=== PATIENT | female | born 1945 | race Caucasian/White ===

== ENCOUNTER 2017-09-08 08:58 | Emergency (ER) | payer MEDICARE, BC ==
[~2017-09-08] VITALS: Ht 162.6 cm; Wt 71.0 kg
[2017-09-08 09:09] VITALS: BP 169/83; PULSE 54; RESP 18; TEMP 98.9; O2SAT 96
--- NOTE | 2017-09-08 09:18 | PD ---
HPI Chief Complaint: Hypertension Time Seen by Provider: 09:17 Travel History International Travel<30 days: No Contact w/Intl Traveler<30days: No Traveled to known affect area: No History of Present Illness HPI 72-year-old female came to the emergency room with her daughter with history of dizziness, blurred vision on and off for past couple weeks. Patient has been checking her blood pressure and it fluctuates anywhere from 140 systolic to 180s. She went to see a primary care physician and was asked to keep a diary of the blood pressure. However this morning she was feeling quite dizzy and not feeling well and asked her daughter to bring her to the emergency room. Blood pressure in triage is reasonable. Patient has history of breast cancer and has been on remission but given her symptoms she feels that her cancer might be coming back. Patient denies of any headache or pain anywhere. Patient denies of any syncopal episode. She has been nauseous as well including this morning. No history of vomiting however. Patient is on diltiazem and Ziac for her blood pressure. She is also on Lasix as needed which she has not taken any years. Patient's heart rate is in the 50s. [facility] Past Medical History Narrative Medical List of her past medical, surgical, social and family history reviewed from the nursing note. Cardiovascular Problems: Yes (HTN) ?: Not Allergies-Medications (Allergen,Severity, Reaction): Coded Allergies: adhesive tape (Verified Adverse Reaction, Intermediate, SKIN IRRITATION, ) morphine (Verified Adverse Reaction, Intermediate, NAUSEA, 09/08/17) Comments List of her allergies reviewed from the nursing note. Reported Meds & Prescriptions Reported Meds & Active Scripts Active Meclizine (Meclizine HCl) 25 Mg Tab 25 Mg PO TID PRN Reported Tramadol (Tramadol HCl) 50 Mg Tab 50 Mg PO BID PRN Klonopin (Clonazepam) 0.5 Mg Tab 0.5 Mg PO TID PRN Ziac (Bisoprolol Fumarate/HCTZ) 10-6.25 Mg Tab 1 Tab PO DAILY Gabapentin 300 Mg Cap 300 Mg PO TID Simvastatin 20 Mg Tab 20 Mg PO DAILY Trazodone (Trazodone HCl) 50 Mg Tab 50 Mg PO HS Diltiazem ER 24 HR 180 Mg Fiona 120 Mg PO DAILY Narrative Medication List of her home medications reviewed from the nursing note. Review of Systems Except as stated in HPI: all other systems reviewed are Neg Eyes: Positive: Blurred Vision Gastrointestinal: Positive: Nausea Neurologic: Positive: Dizziness Physical Exam Narrative GENERAL: Awake, alert, anxious, no obvious distress SKIN: Focused skin assessment warm/dry. HEAD: Atraumatic. Normocephalic. EYES: Pupils equal and round. No scleral icterus. No injection or drainage. ENT: No nasal bleeding or discharge. Mucous membranes pink and moist. NECK: Trachea midline. No JVD. CARDIOVASCULAR: Regular rate and rhythm. No murmur appreciated. RESPIRATORY: No accessory muscle use. Clear to auscultation. Breath sounds equal bilaterally. GASTROINTESTINAL: Abdomen soft, non-tender, nondistended. Hepatic and splenic margins not palpable. MUSCULOSKELETAL: No obvious deformities. No clubbing. No cyanosis. No edema. NEUROLOGICAL: Awake and alert. No obvious cranial nerve deficits. Motor grossly within normal limits. Normal speech. PSYCHIATRIC: Appropriate mood and affect; insight and judgment normal. Data Data Last Documented VS Vital Signs Date Time Temp Pulse Resp B/P (MAP) Pulse Ox O2 Delivery O2 Flow Rate FiO2 09/08/17 12:40 09/08/17 11:50 52 16 97 Room Air 09/08/17 09:09 98.9 Orders Orders Electrocardiogram (09/08/17 09:37) Complete Blood Count With Diff (09/08/17 09:37) Basic Metabolic Panel (Bmp) (09/08/17 09:37) Urinalysis - C+S If Indicated (09/08/17 09:37) Ecg Monitoring (09/08/17 09:37) Iv Access Insert/Monitor (09/08/17 09:37) Oximetry (09/08/17 09:37) Sodium Chloride 0.9% Flush (Ns Flush) (09/08/17 09:45) Ct Brain W & W/O Iv Contrast (09/08/17 ) Urine Culture (09/08/17 10:35) Iohexol 350 Inj (Omnipaque 350 Inj) (09/08/17 11:27) Ed Discharge Order (09/08/17 12:11) Meclizine (Antivert) (09/08/17 12:15) Labs Laboratory Tests Test 09/08/17 10:00 09/08/17 10:25 09/08/17 10:35 White Blood Count 5.1 TH/MM3 Red Blood Count 4.37 MIL/MM3 Hemoglobin 13.4 GM/DL Hematocrit 39.0 % Mean Corpuscular Volume 89.2 FL Mean Corpuscular Hemoglobin 30.7 PG Mean Corpuscular Hemoglobin Concent 34.4 % Red Cell Distribution Width 12.3 % Platelet Count 244 TH/MM3 Mean Platelet Volume 8.5 FL Neutrophils (%) (Auto) 70.9 % Lymphocytes (%) (Auto) 15.7 % Monocytes (%) (Auto) 8.3 % Eosinophils (%) (Auto) 3.0 % Basophils (%) (Auto) 2.1 % Neutrophils # (Auto) 3.6 TH/MM3 Lymphocytes # (Auto) 0.8 TH/MM3 Monocytes # (Auto) 0.4 TH/MM3 Eosinophils # (Auto) 0.2 TH/MM3 Basophils # (Auto) 0.1 TH/MM3 CBC Comment DIFF FINAL Differential Comment Blood Urea Nitrogen 10 MG/DL Creatinine 0.59 MG/DL Random Glucose 102 MG/DL Calcium Level 9.1 MG/DL Sodium Level 137 MEQ/L Potassium Level 3.6 MEQ/L Chloride Level 102 MEQ/L Carbon Dioxide Level 29.9 MEQ/L Anion Gap 5 MEQ/L Estimat Glomerular Filtration Rate 100 ML/MIN Urine Collection Type CATH Urine Color OTHER Urine Turbidity CLEAR Urine pH 7.0 Urine Specific [place] LESS/EQUAL 1.005 Urine Protein NEG mg/dL Urine Glucose (UA) NEG mg/dL Urine Ketones NEG mg/dL Urine Occult Blood TRACE Urine Nitrite NEG Urine Bilirubin NEG Urine Urobilinogen 0.2 MG/DL Urine Leukocyte Esterase LARGE Urine WBC 3-5 /hpf Urine WBC Clumps OCC Urine Squamous Epithelial Cells 0-3 /hpf Urine Transitional Epithelial Cells 0-1 /hpf Urine Bacteria RARE /hpf Microscopic Urinalysis Comment CULTURE INDICATED MDM Medical Decision Making Medical Screen Exam Complete: Yes Emergency Medical Condition: Yes Medical Record Reviewed: Yes Interpretation(s) Twelve-lead EKG was reviewed by me. Normal sinus rhythm, left axis deviation, bradycardia, LVH per voltage criteria, nonspecific ST-T wave changes. Heart rate of 51 bpm. Differential Diagnosis Intracranial tumor/metastases, essential hypertension, electrolyte abnormality Narrative Course 11:43 AM blood test results are back and within acceptable limits. UA is suggestive of large leukocyte esterase but there are no white blood cells. I would wait to see what the culture reveals. Awaiting for the CT scan of her head to be read by the radiologist. 12:[address] scan has been read by the radiologist is unremarkable. I went and discussed all the test results with the patient and her daughter. I answered all the questions the best of my ability. Patient was also saying that when she got up to use the restroom she got dizzy where she felt like the room was spinning. 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 The daughter also wanted me to check her ears. Bilateral TM appeared to be normal. I will give her a dose of meclizine here and discharge her home. Patient has been on Antivert in the past. Procedures EKG Prior to Arrival: No Diagnosis Primary Impression: Dizziness Additional Impressions: Vertigo Essential hypertension Referrals: Primary Care Physician Additional Instructions: Please take your Lasix if the blood pressure seems to go up more than 170 systolic along with symptoms. Follow-up with your primary care. Take the medication prescribed to you as per the prescription direction. You should not be driving while you have been dizzy. Return to the ER if condition worsens or any other new concerns. Med/Other Pt SpecificInfo: Prescription(s) given Scripts Furosemide (Furosemide) 20 Mg Tab 20 MG PO BID Y for SBP>160, DBP>90, #20 TAB 0 Refills Prov: Pineda Martin MD 09/08/17 Meclizine (Meclizine) 25 Mg Tab 25 MG PO TID Y for VERTIGO, #21 TAB 0 Refills Prov: Pineda Martin MD 09/08/17 Disposition: 01 DISCHARGE HOME Condition: Stable Pineda Martin MD September 08, 2017 09:18
[2017-09-08 09:40] VITALS: O2SAT 96
[2017-09-08] MEDS ORDERED: SODIUM CHLORIDE 0.9% FLUSH 10 ML FLUSH IVF PRN (09:45)
[2017-09-08] MEDS ORDERED: SIMV20TA PO (09:49)
[2017-09-08] MEDS ORDERED: TRAZ50TA12 PO (09:49)
[2017-09-08] MEDS ORDERED: DILT0.05 PO (09:49)
[2017-09-08] MEDS ORDERED: GABA300C5 PO (09:49)
[2017-09-08] MEDS ORDERED: CLON.5 PO (09:49)
[2017-09-08] MEDS ORDERED: ZIAC106.25 PO (09:49)
[2017-09-08] MEDS ORDERED: TRAM50TA PO (09:49)
[2017-09-08 10:11] LABS: AUTOMATED NEUTROPHIL # 3.6 TH/MM3 (1.8-7.7); BASOPHIL # 0.1 TH/MM3 (0-0.2); BASOPHIL % 2.1 % (0.0-2.0); EOSINOPHIL # 0.2 TH/MM3 (0-0.4); HEMOGLOBIN 13.4 GM/DL (11.6-15.3); LYMPH % 15.7 % (9.0-44.0); LYMPHOCYTE # 0.8 TH/MM3 (1.0-4.8); MEAN CELL VOLUME 89.2 FL (80.0-100.0); MEAN CORPUSCULAR HEMOGLOBIN 30.7 PG (27.0-34.0); MEAN CORPUSCULAR HGB CONC 34.4 % (32.0-36.0); MEAN PLATELET VOLUME 8.5 FL (7.0-11.0); MONO % 8.3 % (0.0-8.0); MONOCYTE # 0.4 TH/MM3 (0-0.9); NEUT % 70.9 % (16.0-70.0); PLATELET COUNT 244 TH/MM3 (150-450); RED BLOOD COUNT 4.37 MIL/MM3 (4.00-5.30); RED CELL DISTRIBUTION WIDTH 12.3 % (11.6-17.2); WHITE BLOOD COUNT 5.1 TH/MM3 (4.0-11.0)
[2017-09-08 10:46] LABS: BILIRUBIN, URINE NEG (NEG); BLOOD, URINE TRACE (NEG); GLUCOSE,URINE NEG (NEG); KETONE, URINE NEG (NEG); NITRITE,URINE NEG (NEG); URINE COLOR OTHER (YELLW/STRAW); URINE LEUKOCYTE ESTERASE LARGE (NEG)
[2017-09-08 10:51] LABS: SQUAMOUS EPITHELIAL CELL URINE 0-3 /hpf (0-5); WHITE BLOOD CELL CLUMPS OCC
[2017-09-08 10:52] LABS: BACTERIA, URINE RARE /hpf; TRANSITIONAL EPI CELLS, URINE 0-1 /hpf
[2017-09-08 10:59] LABS: BICARBONATE 29.9 MEQ/L (21.0-32.0); CALCIUM 9.1 MG/DL (8.5-10.1)
[2017-09-08 11:03] LABS: CREATININE 0.59 MG/DL (0.50-1.00)
[2017-09-08] MEDS ORDERED: IOHEXOL 350 MG/ML 10 ML VIAL (for RAD DIAG) IVCONTRAST ONE (11:27)
[2017-09-08 11:50] VITALS: BP 165/85; PULSE 52; RESP 16; O2SAT 97
--- NOTE | 2017-09-08 11:58 | RADRPT ---
EXAM DATE/TIME: 09/08/2017 11:19 [place] COMPARISON: No previous studies available for comparison. INDICATIONS : Hypertension and headache. IV CONTRAST: 95 cc Omnipaque 350 (iohexol) IV RADIATION DOSE: 59.97 CTDIvol (mGy) MEDICAL HISTORY : Hypertension. Hypercholesterolemia. Carcinoma, breast. SURGICAL HISTORY : Cholecystectomy. Hysterectomy.Left breast lumpectomy. ENCOUNTER: Initial ACUITY: 1 month PAIN SCALE: 4/10 LOCATION: Left cranial TECHNIQUE: Multiple contiguous axial images were obtained of the head. Using automated exposure control and adj ustment of the mA and/or kV according to patient size, radiation dose was kept as low as reasonably a chievable to obtain optimal diagnostic quality images. DICOM format image data is available electro nically for review and comparison. FINDINGS: CEREBRUM: There is mild generalized atrophy. Ventricles are normal. No evidence of midline shift, cerebral ivon ma or blood products. No extra-axial fluid collections are seen. POSTERIOR FOSSA: The cerebellum and brainstem are intact. The 4th ventricle is midline. The cerebellar pontine angle is unremarkable. EXTRACRANIAL: Visualized sinuses are clear. SKULL: The calvaria is intact. No evidence of skull fracture. POST CONTRAST: No abnormal areas of parenchymal or dural enhancement. No evidence of blood-brain barrier breakdown. CONCLUSION: No acute intracranial abnormality is identified. Keyur Youssef MD on September 08, 2017 at 11:53 Board Certified Radiologist. This report was verified electronically.
[2017-09-08] MEDS ORDERED: MECLIZINE HCL 25 MG TAB PO ONE (12:15)
[2017-09-08] MEDS ORDERED: MECL-62 PO (12:15)
[2017-09-08] MEDS ORDERED: FURO20TA PO (12:56)
--- NOTE | 2017-09-08 14:07 | EKG ---
Date Performed: 09/08/2017 Time Performed: 09:45:37 PTAGE: 72 years EKG: SINUS BRADYCARDIA VOLTAGE CRITERIA FOR LVH ABNORMAL ECG NO PREVIOUS TRACING DOCTOR: Tan Devine Interpretating Date/Time 09/08/2017 14:05:12
== END 2017-09-08 13:00 | disposition home or self-care (01) ==
LOC: PHED 08:58
DX: R42 Dizziness and giddiness (principal); I10 Essential (primary) hypertension; R51 Headache; R94.31 Abnormal electrocardiogram [ECG] [EKG]; R00.1 Bradycardia, unspecified; R82.79 Other abnormal findings on microbiological examination of urine; B96.5 Pseudomonas (aeruginosa) (mallei) (pseudomallei) as the cause of diseases classified elsewhere; Z85.3 Personal history of malignant neoplasm of breast
CPT/HCPCS: 70470; 80048; 81001; 85025; 87077; 87086; 87186; 93005; 99284; Q9967